=== PATIENT | female | born 1965 | race Caucasian/White ===

== ENCOUNTER 2020-07-17 06:40 | Outpatient (CLI) | payer BC ==
[~2020-07-17] VITALS: Ht 162.6 cm; Wt 84.1 kg
== END 2020-07-17 15:32 | disposition home or self-care (01) ==
LOC: PREOP 06:40
PROVIDERS: ATTEND Otolaryngology Otolaryngology/Facial Plastic Surgery
DX: Z01.818 Encounter for other preprocedural examination (principal)

== ENCOUNTER 2020-07-24 06:25 | Day surgery (SDC) | payer BC, OTHER ==
[~2020-07-24] VITALS: Ht 162.6 cm; Wt 84.1 kg
[2020-07-24] VITALS (12 sets, daily range): BP systolic 122–163; BP diastolic 68–82
[2020-07-24] MEDS ORDERED: AMPICILLIN/SULBACTAM INJECTION 1.5 GM in NS (IVPB) 100 ML IV ONE (06:45)
[2020-07-24] MEDS ORDERED: HYDROCORTISONE 100 MG/2 ML (Solu-CORTEF) VIAL IV ONE (06:45)
[2020-07-24] MEDS: LACTATED RINGERS 1,000 ML IV PRN ×2 (07:21→09:28)
[2020-07-24] MEDS ORDERED: proPOfol 200 MG/20 ML (DIPRIVAN) VIAL IV ONE (07:24)
[2020-07-24] MEDS ORDERED: MIDAZOLAM 2 MG/2 ML (VERSED) VIAL ONE (07:24)
[2020-07-24] MEDS ORDERED: LIDOCAINE PF 2% 5 ML (XYLOCAINE) VIAL ONE (07:24)
[2020-07-24] MEDS ORDERED: ROCURONIUM 10 MG/ML 5 ML SYRINGE IV ONE (07:24)
[2020-07-24] MEDS ORDERED: fentaNYL INJ 100 MCG/2 ML AMP ONE ×2 (07:24→09:18)
[2020-07-24] MEDS ORDERED: ONDANSETRON 4 MG/2 ML (SDV) Z0FRAN ONE ×2 (07:24→09:12)
[2020-07-24] MEDS ORDERED: COCAINE HCL 4% 2 ML SYR ONE (07:25)
[2020-07-24] MEDS ORDERED: LIDOCAINE/EPI 1%-1:200,000 (XYLOCAINE) 30 ML VIAL ONE (07:25)
[2020-07-24] MEDS ORDERED: PHENYLEPHRINE 0.5% NASAL SPR (NEO-SYNEPHRINE) REG ONE (07:25)
[2020-07-24] MEDS ORDERED: BSS 15 ML ONE (07:25)
[2020-07-24] MEDS ORDERED: SEVOFLURANE (ULTANE) 15 ML INHAL SOLN ONE ×4 (07:26→08:58)
[2020-07-24] MEDS ORDERED: SCOPOLAMINE 1.5 MG (TRANSDERM-SCOP) PATCH TOP ONE (07:30)
[2020-07-24] MEDS ORDERED: SCOPOLAMINE 1.5 MG (TRANSDERM-SCOP) PATCH ONE (07:30)
[2020-07-24] MEDS ORDERED: FAMOTIDINE 20MG/2ML IV (PEPCID) IV ONE (07:30)
--- NOTE | 2020-07-24 08:10 | Progress Note-Pre Operative ---
Pre-Operative Progress Note H&P Reviewed The H&P was reviewed, patient examined and no changes noted. Date Seen by Provider: July 24, 2020 Time Seen by Provider: 08:15 Date H&P Reviewed: July 24, 2020 Time H&P Reviewed: 08:15 Pre-Operative Diagnosis: Bilat Chronic Sinusitis, Dev septum, Bilat hyper of Inf Turbs LAITH HARE MD July 24, 2020 08:10
[2020-07-24] MEDS ORDERED: GLYCOPYRROLATE 0.2 MG/ML (ROBINUL) 2 ML VIAL ONE (08:57)
[2020-07-24] MEDS ORDERED: PHENYLEPHRINE 100 MCG/ML 10 ML (ANESTHESIA) SYR ONE (08:57)
--- NOTE | 2020-07-24 09:09 | Progress Note-Post Operative ---
Post-Operative Progess Note Surgeon (s)/Court Monitor (s) Surgeon LAITH HARE MD Court Monitor n/a Pre-Operative Diagnosis Bilat Chronic Sinusitis, Dev septum, Bilat hyper of Inf Turbs Post-Operative Diagnosis same Post-Op Procedure Note Date of Procedure: July 24, 2020 Name of Procedure Performed: Bilat Revision ESs, Bilat Partial Reduction of the INf Turbs Description & Findings Description and Findings: n/a Anesthesia Type get Estimated Blood Loss minimal Packing none. Specimen(s) collected/removed bilat chornic sinus disease LAITH HARE MD July 24, 2020 09:09
[2020-07-24] MEDS ORDERED: PROMETHAZINE INJ 25 MG/ML (PHENERGAN) AMP ONE (09:12)
[2020-07-24] MEDS ORDERED: PROMETHAZINE INJ 25 MG/ML (PHENERGAN) AMP IVP PRN (09:15)
[2020-07-24] MEDS ORDERED: predniSONE 20 MG TAB PO ONE (09:15)
[2020-07-24] MEDS ORDERED: D5 1/2 NS W/KCL 20 MEQ/L 1,000 ML IV SCH (09:15)
[2020-07-24] MEDS ORDERED: ACETAMINOPHEN 325 MG TABLET PO PRN (09:15)
[2020-07-24] MEDS ORDERED: HYDROcodone/APAP 5 MG/325 MG (LORTAB) TAB PO PRN (09:15)
[2020-07-24] MEDS ORDERED: PROMETHAZINE INJ 25 MG/ML (PHENERGAN) AMP IVP ONE (09:30)
[2020-07-24] MEDS ORDERED: fentaNYL INJ 100 MCG/2 ML AMP IVP ONE (09:30)
[2020-07-24] MEDS ORDERED: MEPERIDINE (DEMEROL) INJ 50 MG/ML IVP ONE (09:30)
[2020-07-24] MEDS ORDERED: ONDANSETRON 4 MG/2 ML (SDV) Z0FRAN IVP PRN (09:30)
[2020-07-24] MEDS ORDERED: AMOX-355 PO (09:42)
[2020-07-24] MEDS ORDERED: PRD20T PO ×2 (09:42→09:44)
[2020-07-24] MEDS ORDERED: ACHD5005 PO (09:42)
--- NOTE | 2020-07-24 10:05 | Anesthesia-General Post-Op ---
General Patient Condition Mental Status/LOC: Same as Preop Cardiovascular: Satisfactory Nausea/Vomiting: Present (being treated with Rx) Respiratory: Satisfactory Pain: Controlled Complications: Absent Post Op Complications Complications None Follow Up Care/Instructions Patient Instructions None needed. Anesthesia/Patient Condition Patient Condition Patient is doing well, stable vital signs, no apparent adverse anesthesia problems other than noted above. No complications reported per nursing. CHELSIE BORRERO CRNA July 24, 2020 10:05
[2020-07-24] MEDS ORDERED: predniSONE 20 MG TAB ONE (10:24)
[2020-07-24] MEDS ORDERED: HYDROcodone/APAP 5 MG/325 MG (LORTAB) TAB ONE (10:24)
== END 2020-07-24 10:30 | disposition home or self-care (01) ==
LOC: SDC 06:25
PROVIDERS: ATTEND Otolaryngology Otolaryngology/Facial Plastic Surgery
DX: J32.8 Other chronic sinusitis (principal); J34.3 Hypertrophy of nasal turbinates; J34.2 Deviated nasal septum; R09.81 Nasal congestion
CPT/HCPCS: 87081; 88305